=== PATIENT | male | born 1985 | race Caucasian/White ===

== ENCOUNTER 2021-10-27 11:10 | Emergency (ER) | payer OTHER, SELFPAY ==
--- NOTE | ~2021-10-27 | CT_ITS ---
EXAMINATION: CT ABDOMEN AND PELVIS WITHOUT CONTRAST CLINICAL INFORMATION: Lower abdominal pain with history of diverticulitis COMPARISON: CT abdomen pelvis 11/16/2019 TECHNIQUE: Multidetector volumetric imaging was performed from the superior aspect of the liver through the pubic symphysis. Sagittal and coronal reformatted images were obtained on the technologist's workstation. This CT examination was performed using dose optimization techniques as appropriate, variously including the following: *Automated exposure control *Adjustment of mA and/or kV according to patient size (this includes techniques or standardized protocols for targeted exams where dose is matched to indication/reason for exam; i.e. extremities or head) *Use of iterative reconstruction technique DLP: 447 mGy-cm FINDINGS: LUNG BASES: The visualized lung bases are unremarkable. LIVER, GALLBLADDER, AND BILIARY TREE: The liver is normal in size, shape, and attenuation. No focal hepatic lesion or biliary ductal dilatation is present. The gallbladder is unremarkable with no evidence of radiopaque gallstones, gallbladder wall thickening, or obvious pericholecystic inflammatory changes. PANCREAS: Unremarkable. SPLEEN: Unremarkable. ADRENAL GLANDS: Unremarkable. KIDNEYS AND URETERS: The kidneys are normal in size, shape, and attenuation. The left kidney is nonrotated and facing anterolaterally. No hydronephrosis, hydroureter, or calculi seen. No perinephric stranding. BLADDER: Unremarkable. GASTROINTESTINAL TRACT: The sigmoid colon, there is an area of thickening with marked diverticular changes. There are pericolonic inflammatory changes in this region as well suggestive of subtle acute diverticulitis. There is no extraluminal air and no pericolonic fluid collections. This is the same area where the patient had diverticulitis on 10/17/2019, but at that time, findings were more marked. The small and large bowel are otherwise unremarkable. The appendix is unremarkable. ABDOMINAL WALL: No significant hernia is appreciated. There is a tiny periumbilical hernia seen containing only fat. LYMPH NODES: No retroperitoneal lymphadenopathy. VASCULAR: Unremarkable. 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 OSSEOUS STRUCTURES: Unremarkable. CT/CT abdomen pelvis wo con IMPRESSION: Acute recurrent uncomplicated diverticulitis sigmoid colon . Other incidental findings as above. Fleischner guidelines were followed.
[2021-10-27 11:22] VITALS: BP 135/79; PULSE 98; RESP 18; TEMP 37.4; O2SAT 98; BMI 26.1
--- NOTE | 2021-10-27 12:01 | ED_ITS ---
HPI - Abdominal Pain General Chief Complaint: Abdominal Pain Stated Complaint: abd and low back pain Time Seen by Provider: 10/27/21 11:53 Source: patient Mode of arrival: ambulatory Limitations: no limitations History of Present Illness HPI narrative: 36 yo male with history of recurrent diverticulitis over the last 4 years who presents to the ER for evaluation of lower abdominal pain that started 2 nights ago. He reports it started in his left lower abdomen and has migrated to his right lower abdomen. He states it is all over his lower abdomen and constant. He feels most comfortable when he is lying down. He reports last night he started having shaking chills and subjective fever. No nausea or vomiting. No diarrhea. He had 1 bowel movement this morning that was normal consistency, unknown if there is any blood in his stool because he is color blind. He states he usually gets these flare-ups and can manage him at home by going on a liquid diet for couple of days. He has been having liquid diet at home but the pain has been worsening despite this. He has never been seen by GI and he has never had a colonoscopy before. MD elicited complaint: abdominal pain Pertinent past history: diverticulitis Onset (ago): hour(s) (2-3) Pain Consistency: constant Location: LLQ Severity: moderate Quality: stabbing Radiation: RLQ Migration to: RLQ Exacerbating factors: nothing Relieving factors: nothing Context: history of similar episodes Associated symptoms: fever and chills Related Data Previous Rx's Medication Instructions Recorded amoxicillin 875 mg-potassium 1 tab PO BID #20 tabs 10/27/21 clavulanate 125 mg tablet ibuprofen 600 mg tablet 600 mg PO Q8H PRN pain #10 tabs 10/27/21 oxycodone 5 mg tablet 5 mg PO Q8H PRN severe pain (scale 10/27/21 score 7-10) #6 tabs Allergies Allergy/AdvReac Type Severity Reaction Status Date / Time No Known Allergies Allergy Unverified 10/13/21 11:45 Review of Systems Review of Systems Constitutional: +Fever, + Chills ENT/Mouth: No sore throat, No Rhinorrhea, No Swallowing Difficulty Eyes: No Eye Pain, No Swelling, No Redness Cardiovascular: No Chest Pain, No SOB, No Orthopnea, No Edema Respiratory: No Cough, No Sputum, No Wheezing, No dyspnea Gastrointestinal: No Nausea, No Vomiting, No Diarrhea, + abdominal Pain, No Hematochezia, No Melena Genitourinary: No Dysuria, No Urinary Frequency, No Hematuria Musculoskeletal: No joint pain, No Myalgias Skin: No Skin Lesions, No rash Neuro: No Weakness, No Numbness, No Dizziness, No Headache Psych: No Anxiety/Panic, No Depression Heme/Lymph: No Bruising, No Lymphadenopathy Endocrine: No Polyuria, No Polydipsia PMFSH Social History Social History (System 10/13/21 @ 11:45 by Delmi Martinez) Advance Directives: No Advance Directives Information Provided: No Physical Exam ED Vital Signs: Vital Signs - 24 hr 10/27/21 11:22 10/27/21 12:14 10/27/21 14:13 Temperature 99.3 F 98.5 F Pulse Rate 98 87 84 Respiratory Rate 18 16 18 Blood Pressure 135/79 127/79 119/77 Pulse Oximetry 98 97 98 Oxygen Delivery Method Room Air Room Air Room Air BMI result Body Mass Index 26.1 Appearance: Alert. Oriented X3. No acute distress. Eyes: Pupils equal, round and reactive to light. ENT: Pharynx normal. Neck: Normal inspection. Neck supple. CVS: Normal heart rate and rhythm. Pulses normal. Respiratory: No respiratory distress. Breath sounds normal. Abdomen: Soft, mild lower abdominal tenderness, no rebound or guarding. normal +BS x4 Skin: Skin warm and dry. Normal skin color. Normal skin turgor. No rashes. Extremities: No lower extremity edema. Neuro: Oriented X 3. No motor deficit. No sensory deficit. Course Course Course Narrative: 36 yo male with history of recurrent diverticulitis presents with lower abdominal pain x 2-3 days without N/V/D or fever. Mild tenderness to his lower abdomen, no rebound or guarding. No fever on arrival. Will get labs and CT scan for further evaluation. Concern for recurrent diverticulitis. Reevaluation(s) Reevaluation #1: Labs are reassuring, no leukocytosis. His CT scan is showing acute uncomplicated sigmoid diverticulitis without any abscess formation. He is nontoxic appearing, tolerating p.o.. His pain is well controlled. At this time is stable for p.o. antibiotics, pain control and foll ow-up with GI for further evaluation. Stable for DC. MDM - Abdominal Pain Lab Data Result diagrams: 10/27/21 12:15 10/27/21 12:15 Labs: Lab Results 10/27/21 10/27/21 10/27/21 Range/Units 12:15 12:15 12:16 WBC 5.3 (4.8-10.8) X10*3/uL RBC 4.61 (4.60-5.80) X10*6/uL Hgb 13.5 L (14.0-18.0) g/dl Hct 41.4 L (42.0-52.0) % MCV 89.8 (80.0-98.0) fL MCH 29.3 (27.0-33.0) pg MCHC 32.6 (31.0-36.0) g/dl RDW 13.4 (11.0-16.0) % Plt Count 191 (160-400) X10*3/uL MPV 10.9 (9.4-12.4) fL Immature Gran % (Auto) 0.4 (0.0-0.4) % Neut % (Auto) 75.6 H (45-73) % Lymph % (Auto) 9.8 L (20-40) % [place] % (Auto) 13.2 H (2-11) % Eos % (Auto) 0.6 (0-4) % Baso % (Auto) 0.4 (0-2) % Lymph # (Auto) 0.5 L (1.2-4.9) X10*3/uL [place] # (Auto) 0.7 (0.1-1.2) X10*3/uL Eos # (Auto) 0.0 (0.0-0.4) X10*3/uL Baso # (Auto) 0.0 (0.0-0.2) X10*3/uL Abs Immat Gran (auto) 0.02 (0.00-0.03) X10*3/uL Absolute Neuts (auto) 4.0 (2.0-8.3) x10*3/uL Absolute Nucleated RBC 0.000 (0.0-0.012) X10*3/uL Nucleated RBC % (auto) 0.0 (0.0-0.2) /100WBC Sodium 138 (135-145) mmol/L Potassium 3.8 (3.3-5.1) mmol/L Chloride 101 (96-108) mmol/L Carbon Dioxide 28 (22-29) mmol/L Anion Gap 13 (12-20) BUN 12 (9-16) mg/dL Creatinine 0.98 (0.5-1.4) mg/dL Estim Creat Clear Calc 88.9 Estimated GFR > 60 Random Glucose 88 (60-115) mg/dL Calcium 9.6 (8.4-10.2) mg/dL Magnesium 1.9 (1.6-2.6) mg/dL Total Bilirubin 0.3 (0.0-1.0) mg/dL Direct Bilirubin < 0.2 (0.0-0.5) mg/dL AST 23 (5-37) U/L ALT 22 (0-40) U/L Alkaline Phosphatase 63 (39-117) U/L Total Protein 7.4 (6.5-8.0) g/dL Albumin 4.9 (3.5-5.0) g/dL Urine Color YELLOW Urine Appearance CLEAR Urine pH 6.5 (5.0-8.0) Ur Specific [place] <= 1.005 (1.005-1.025) Urine Protein NEG (NEG-TRACE) MG/DL Urine Glucose (UA) NEG (NEG) MG/DL Urine Ketones NEG (NEG) MG/DL Urine Blood NEG (NEG) Urine Nitrite NEG (NEG) Ur Leukocyte Esterase NEG (NEG) Critical Care Time Critical Care Time Critical Care Time: No Discharge Plan Discharge Clinical Impression: Diverticulitis Patient Disposition: Home, Self-Care Instructions: Diverticulitis (ED), Diverticulitis Diet (ED) Additional Instructions: Your CT scan showed acute uncomplicated diverticulitis of the sigmoid colon. Take the prescribed antibiotic as directed, do not miss any doses in complete the entire course. Continue to take Tylenol as needed for pain. Take the prescribed anti-inflammatories and narcotic pain medication as needed, as directed. Do not drive after taking the oxycodone, it can make you drowsy. Follow-up with GI for further evaluation and treatment. Name and number below. If you develop new or worsening symptoms call 911 or come back to the ER for further evaluation. Prescriptions: New amoxicillin-pot clavulanate 875-125 mg tablet 1 tab PO BID Qty: 20 0RF ibuprofen 600 mg tablet 600 mg PO Q8H PRN (Reason: pain) Qty: 10 0RF oxycodone 5 mg tablet 5 mg PO Q8H PRN (Reason: severe pain (scale score 7-10)) Qty: 6 0RF Rx Instructions: Partial Fill upon patient request. Referrals: Chele Green MD [Physician] - ( Recurrent diverticulitis) Stand Alone Forms: Work/School Release
[2021-10-27 12:14] VITALS: BP 127/79; PULSE 87; RESP 16; O2SAT 97
[2021-10-27 12:23] LABS: MANUAL DIFF FLAG NO
[2021-10-27 12:25] LABS: Appearance Urine CLEAR; Color Urine YELLOW; Glucose Urine UA NEG (NEG); Leukocyte Esterase Urine NEG (NEG); Nitrite Urine NEG (NEG); PH 6.5 (5.0-8.0); Specific Gravity - Urine <= 1.005 (1.005-1.025); Urine Blood NEG (NEG); Urine Ketones NEG (NEG); Urine Protein NEG (NEG-TRACE)
[2021-10-27 12:25] LABS: Basophils Percent Auto 0.4 % (0-2); Eosinophils Percent Auto 0.6 % (0-4); Hematocrit 41.4 % (42.0-52.0); Hemoglobin 13.5 g/dl (14.0-18.0); Imm Gran Abs Auto 0.02 X10*3/uL (0.00-0.03); Imm Gran Pct Auto 0.4 % (0.0-0.4); Lymphocytes Absolute Auto 0.5 X10*3/uL (1.2-4.9); Lymphocytes Percent Auto 9.8 % (20-40); Mean Corpuscular HGB Conc 32.6 g/dl (31.0-36.0); Mean Corpuscular Hemoglobin 29.3 pg (27.0-33.0); Mean Corpuscular Volume 89.8 fL (80.0-98.0); Mean Platelet Volume 10.9 fL (9.4-12.4); Monocytes Absolute Auto 0.7 X10*3/uL (0.1-1.2); Monocytes Percent Auto 13.2 % (2-11); Neutrophils Percent Auto 75.6 % (45-73); Platelet Count 191 X10*3/uL (160-400); Red Blood Count 4.61 X10*6/uL (4.60-5.80); Red Cell Distribution Width 13.4 % (11.0-16.0); White Blood Count 5.3 X10*3/uL (4.8-10.8)
[2021-10-27 12:57] LABS: Alanine Aminotransferase 22 U/L (0-40); Albumin Level 4.9 g/dL (3.5-5.0); Alkaline Phosphatase 63 U/L (39-117); Anion Gap 13 (12-20); Aspartate Amino Transferase 23 U/L (5-37); Bilirubin Direct < 0.2 mg/dL (0.0-0.5); Bilirubin Total 0.3 mg/dL (0.0-1.0); Blood Urea Nitrogen 12 mg/dL (9-16); Calcium 9.6 mg/dL (8.4-10.2); Carbon Dioxide 28 mmol/L (22-29); Chloride 101 mmol/L (96-108); Creatinine Clr Calc Pharmacy 88.9; Estimated Glomerular Filt Rate > 60; Glucose Random 88 mg/dL (60-115); Magnesium 1.9 mg/dL (1.6-2.6); Potassium 3.8 mmol/L (3.3-5.1); Sodium 138 mmol/L (135-145); Total Protein 7.4 g/dL (6.5-8.0)
[2021-10-27 14:13] VITALS: BP 119/77; PULSE 84; RESP 18; TEMP 36.9; O2SAT 98
== END 2021-10-27 15:05 | disposition home or self-care (01) ==
PROVIDERS: Physician Assistant; Emergency Provider Student in an Organized Health Care Education/Training Program; PCP Nurse Practitioner Family
DX: K57.32 Diverticulitis of large intestine without perforation or abscess without bleeding (principal)
CPT/HCPCS: 36415; 74176; 80048; 80076; 81003; 83735; 85025; 99283; 99284

== ENCOUNTER → 2021-12-05 10:53 | Outpatient (BNVA) | payer OTHER, SELFPAY | PROVIDERS: PCP Nurse Practitioner Family; Visit Provider Internal Medicine Gastroenterology | DX: K57.92 Diverticulitis of intestine, part unspecified, without perforation or abscess without bleeding (principal) | CPT/HCPCS: 99202 ==

== ENCOUNTER 2022-03-21 08:16 | Emergency (ER) | payer OTHER, SELFPAY ==
--- NOTE | ~2022-03-21 | CT_ITS ---
EXAMINATION: CT ABDOMEN AND PELVIS WITH CONTRAST CLINICAL INFORMATION: Abdominal pain COMPARISON: Previous CT of the abdomen and pelvis October 2021 TECHNIQUE: Multidetector volumetric images were obtained from the superior aspect of the liver through the pubic symphysis following administration 85 mL of Omnipaque 350 intravenous contrast. Sagittal and coronal reformatted images were obtained on the technologist's workstation. Oral contrast: Yes This CT examination was performed using dose optimization techniques as appropriate, variously including the following: *Automated exposure control *Adjustment of mA and/or kV according to patient size (this includes techniques or standardized protocols for targeted exams where dose is matched to indication/reason for exam; i.e. extremities or head) *Use of iterative reconstruction technique DLP: 280 mGy-cm FINDINGS: LUNG BASES: The visualized lung bases are unremarkable. LIVER, GALLBLADDER, AND BILIARY TREE: The liver is normal in size, shape, and attenuation. Small low-attenuation liver lesions difficult to characterize but may represent small cysts. No biliary duct dilatation. The gallbladder is unremarkable with no evidence of radiopaque gallstones, gallbladder wall thickening, or obvious pericholecystic inflammatory changes. PANCREAS: Unremarkable. SPLEEN: Unremarkable. ADRENAL GLANDS: Unremarkable. KIDNEYS AND URETERS: Abnormal rotation with anterior orientation of the left renal pelvis. Kidneys are otherwise unremarkable. BLADDER: Unremarkable. GASTROINTESTINAL TRACT: There is diverticulosis of the colon. There is wall thickening of the left and colon and stranding of the surrounding fat and small amount of fluid suggestive of acute diverticulitis. No evidence of perforation, obstruction or abscess. Small and large bowel is otherwise normal. The appendix is normal. ABDOMINAL WALL: Small bilateral inguinal hernias containing fat. LYMPH NODES: Normal. VASCULAR: Unremarkable. PELVIC VISCERA: Unremarkable. OSSEOUS STRUCTURES: Mild degenerative changes at the hip joints. CT/CT abdomen pelvis w IV con IMPRESSION: Diverticulitis of the left colon and sigmoid colon. Fleischner guidelines were followed.
[2022-03-21 08:18] VITALS: BP 141/94; PULSE 97; RESP 20; TEMP 36.6; O2SAT 99; BMI 25.7
--- NOTE | 2022-03-21 08:35 | ED_ITS ---
HPI - General Adult General Chief complaint: Abdominal Pain Stated complaint: Diverticulitis Time Seen by Provider: 03/21/22 08:34 Source: patient Mode of arrival: ambulatory Limitations: no limitations History of Present Illness HPI narrative: 37 yo M with a PMH of diverticulitis x 5 years presents to the ED with c/o LLQ abdominal pain. He states the pain began yesterday morning while at work. He denies any changes to his regular diet with the exception on new spices on his food. He states that he has had the same pain in the LLQ several times which has been attributed to his diverticulitis, however; the severity is increased compared to past episodes. He denies constipation, diarrhea, blood stools, nausea, and vomiting. He denies fever, chills, and weakness. Onset (ago): hour(s) Location: abdomen and left Radiation: non-radiation Severity: moderate Severity scale (1-10): 6 Quality: aching Pain Consistency: constant Relieving factors: none Exacerbating factors: eating Associated symptoms: denies other symptoms Treatments prior to arrival: none Related Data Previous Rx's Medication Instructions Recorded peg-electrolyte solution 420 gram 240 ml PO Q10M #4,000 mL 12/05/21 oral solution amoxicillin 875 mg-potassium 1 tab PO BID 7 days #14 tabs 03/21/22 clavulanate 125 mg tablet Allergies Allergy/AdvReac Type Severity Reaction Status Date / Time No Known Allergies Allergy Unverified 12/05/21 11:00 Review of Systems Eyes: Eyes: Reports no additional eye complaints ENT: Reports system reviewed and no additional complaints, except as documented Cardiovascular: Cardiovascular: Reports no additional cardiovascular complaints, Denies chest pain, Denies Epigastric Pain and Denies dyspnea Respiratory: Respiratory: Reports no additional respiratory complaints and Denies dyspnea Gastrointestinal: Gastrointestinal: Reports abdominal pain, Denies melena, Denies hematochezia, Denies change in stool character, Denies constipation, D enies diarrhea, Denies nausea and Denies vomiting Neurologic: Reports system reviewed and no additional complaints, except as documented PMFSH Past Medical History Attestation statement: The following information was validated with the patient. Source: old records reviewed Social History Social History Household Members: Significant Other Alcohol intake: never Patient Tobacco Use Status: Current everyday Tobacco user Tobacco use type: Cigarette Cigarette Packs Per Day: 0.5 Advance Directives: No Advance Directives Information Provided: No Physical Exam ED Vital Signs: Vital Signs - 24 hr 03/21/22 08:18 03/21/22 10:54 Temperature 97.9 F Pulse Rate 97 68 Respiratory Rate 20 16 Blood Pressure 141/94 H 128/77 Pulse Oximetry 99 99 Oxygen Delivery Method Room Air BMI result Body Mass Index 25.7 Const General: healthy appearing and no acute distress Nutritional Appearance: average body habitus Orientation/consciousness: patient oriented x3 Limitations: no limitations HENMT Head: Yes normal to inspection and Yes atraumatic Ears: hearing grossly normal bilaterally General nose exam: Normal external nose present Face and sinus: Yes normal facial exam Mouth: Normal oral and palatal mucosa present Eyes General: appearance normal, both eyes and all related structures Alignment and Position: alignment normal Periorbital: periorbital findings normal Eyelids: Yes eyelids normal Conjunctivae: conjunctivae normal Sclerae: sclerae normal Pupils: Equal, round and reactive pupils present EOM: EOMs intact bilaterally Neck Neck: Yes normal visual inspection and Yes full ROM Chest Chest palpation & inspection: normal inspection of the chest Resp Effort & Inspection: normal respiratory effort and able to speak in complete sentences Auscultation: clear to auscultation bilaterally Cardio Rate: regular rate Rhythm: regular rhythm GI Inspection: Yes normal to inspection Palpation (GI): Soft to palpation, not firm, Tenderness to palpation present (GI) in the LLQ, Guarding due to palpation present (GI) and not rigid Auscultation: normal bowel sounds Skin General skin exam: no rashes or lesions noted Neuro General: patient oriented x3 Cranial nerves: Yes Equal, round and reactive pupils present Cognition (Neuro): normal cognition Gait exam (Neuro): Normal gait present Motor exam (neuro): 5/5 motor strength present throughout Sensory Exam: Normal double simultaneous stimulation for sensation Extrem General: Yes normal to inspection, Yes full ROM and Yes capillary refill normal Psych Appearance: grossly normal Mental Status: mental status grossly normal Speech and movement: Normal speech and movement present Affect: normal affect Attitude: cooperative Thought process: Normal thought process present Thought content: Normal thought content present Insight: Good insight present (Psych) Judgement: Good judgement present (Psych) Medications Administered Discontinued Medications Generic Name Dose Route Start Last Admin Trade Name Freq PRN Reason Stop Dose Admin Amoxicillin/Clavulanate Potassium 875 mg 03/21/22 10:35 03/21/22 10:53 Amoxicillin/Potassium Clav 875 Mg Tablet PO 03/21/22 10:36 875 mg ONCE ONE Administration Iohexol 100 ml 03/21/22 09:38 03/21/22 09:39 Iohexol 350 Mg/Ml 100 Ml Infus..Btl IV 03/21/22 09:39 85 ml ONCE ONE Administration Ketorolac Tromethamine 30 mg 03/21/22 08:52 03/21/22 08:59 Ketorolac Tromethamine 30 Mg/Ml Vial IVPUSH 03/21/22 08:53 30 mg ONCE ONE Administration Medical Decision Making MDM Narrative Medical decision making narrative: 37 yo M with a PMH of diverticulitis x 5 years presents to the ED with c/o LLQ abdominal pain that began yesterday morning while at work. WBC and CRP elevated indicating inflammatory process remaining lab work unremarkable. UA negative. CT scan abdomen consistent with diverticulitis of the left colon and sigmoid colon. Low suspicion of colitis, appendicitis, or IBS. 875 mg Augmentin given prior to discharge and pt sent home with Augmentin prescription. Educated to return to the ED with worsening symptoms, severe abdominal pain, bloody stools, or fever. Recommended to follow up with PCP for further management. Lab Data Result diagrams: 03/21/22 08:47 03/21/22 08:47 Labs: Lab Results 03/21/22 03/21/22 03/21/22 Range/Units 08:47 08:47 10:15 WBC 11.4 H (4.8-10.8) X10*3/uL RBC 5.02 (4.60-5.80) X10*6/uL Hgb 14.5 (14.0-18.0) g/dl Hct 44.3 (42.0-52.0) % MCV 88.2 (80.0-98.0) fL MCH 28.9 (27.0-33.0) pg MCHC 32.7 (31.0-36.0) g/dl RDW 13.6 (11.0-16.0) % Plt Count 220 (160-400) X10*3/uL MPV 10.6 (9.4-12.4) fL Immature Gran % (Auto) 0.3 (0.0-0.4) % Neut % (Auto) 78.6 H (45-73) % Lymph % (Auto) 13.2 L (20-40) % [place] % (Auto) 6.8 (2-11) % Eos % (Auto) 0.7 (0-4) % Baso % (Auto) 0.4 (0-2) % Lymph # (Auto) 1.5 (1.2-4.9) X10*3/uL [place] # (Auto) 0.8 (0.1-1.2) X10*3/uL Eos # (Auto) 0.1 (0.0-0.4) X10*3/uL Baso # (Auto) 0.1 (0.0-0.2) X10*3/uL Abs Immat Gran (auto) 0.04 H (0.00-0.03) X10*3/uL Absolute Neuts (auto) 9.0 H (2.0-8.3) x10*3/uL Absolute Nucleated RBC 0.000 (0.0-0.012) X10*3/uL Nucleated RBC % (auto) 0.0 (0.0-0.2) /100WBC Sodium 138 (135-145) mmol/L Potassium 3.9 (3.3-5.1) mmol/L Chloride 99 (96-108) mmol/L Carbon Dioxide 28 (22-29) mmol/L Anion Gap 15 (12-20) BUN 10 (9-16) mg/dL Creatinine 1.03 (0.5-1.4) mg/dL Estim Creat Clear Calc 83.7 Estimated GFR > 60 Random Glucose 102 (60-115) mg/dL Calcium 9.9 (8.4-10.2) mg/dL C-Reactive Protein 20.26 H (< or = 0.50) mg/dL Urine Color Yellow Urine Appearance Clear Urine pH 6.5 (5.0-9.0) Ur Specific [place] >= 1.030 H (1.005-1.025) Urine Protein Trace (Neg-Trace) mg/dL Urine Glucose (UA) Negative (Negative) mg/dL Urine Ketones Negative (Negative) mg/dL Urine Blood Negative (Negative) Urine Nitrite Negative (Negative) Ur Leukocyte Esterase Negative (Negative) Urine RBC 0-2 (0-2) /HPF Urine WBC 0-5 (0-5) /HPF Ur Squamous Epith Cells 0-2 (0-2) /HPF Urine Bacteria None Seen (None Seen) Hyaline Casts 0-2 (0-2) /LPF Imaging Data CT scan - abdomen: Radiologist's impression: CT/CT abdomen pelvis w IV con IMPRESSION: Diverticulitis of the left colon and sigmoid colon. Discharge Plan Discharge Clinical Impression: Diverticulitis Patient Disposition: Home, Self-Care Instructions: Diverticulitis (ED), Diverticulitis Diet (ED) Prescriptions: New amoxicillin-pot clavulanate 875-125 mg tablet 1 tab PO BID 7 Days Qty: 14 0RF No Action peg-electrolyte soln 420 gram recon soln 240 ml PO Q10M Qty: 4000 0RF Rx Instructions: until fecal effluent is clear; do not exceed a total volume of 2,000 mL Referrals: Tima Bunch, [facility] [Primary Care Provider] - Interventions: ED Discharge Assessment Last Done: 03/21/22 10:59 Discharge Date/Time: 03/21/22 10:59 Print Language: Georgian
[2022-03-21 08:52] LABS: MANUAL DIFF FLAG NO
[2022-03-21 08:55] LABS: Basophils Absolute Auto 0.1 X10*3/uL (0.0-0.2); Basophils Percent Auto 0.4 % (0-2); Eosinophils Absolute Auto 0.1 X10*3/uL (0.0-0.4); Eosinophils Percent Auto 0.7 % (0-4); Hematocrit 44.3 % (42.0-52.0); Hemoglobin 14.5 g/dl (14.0-18.0); Imm Gran Abs Auto 0.04 X10*3/uL (0.00-0.03); Imm Gran Pct Auto 0.3 % (0.0-0.4); Lymphocytes Absolute Auto 1.5 X10*3/uL (1.2-4.9); Lymphocytes Percent Auto 13.2 % (20-40); Mean Corpuscular HGB Conc 32.7 g/dl (31.0-36.0); Mean Corpuscular Hemoglobin 28.9 pg (27.0-33.0); Mean Corpuscular Volume 88.2 fL (80.0-98.0); Mean Platelet Volume 10.6 fL (9.4-12.4); Monocytes Absolute Auto 0.8 X10*3/uL (0.1-1.2); Monocytes Percent Auto 6.8 % (2-11); Neutrophils Percent Auto 78.6 % (45-73); Platelet Count 220 X10*3/uL (160-400); Red Blood Count 5.02 X10*6/uL (4.60-5.80); Red Cell Distribution Width 13.6 % (11.0-16.0); White Blood Count 11.4 X10*3/uL (4.8-10.8)
[2022-03-21] MEDS: Ketorolac Tromethamine 30 MG/ML VIAL IVPUSH (08:59)
[2022-03-21 09:09] LABS: Anion Gap 15 (12-20); Blood Urea Nitrogen 10 mg/dL (9-16); Calcium 9.9 mg/dL (8.4-10.2); Carbon Dioxide 28 mmol/L (22-29); Chloride 99 mmol/L (96-108); Creatinine Clr Calc Pharmacy 83.7; Estimated Glomerular Filt Rate > 60; Glucose Random 102 mg/dL (60-115); Potassium 3.9 mmol/L (3.3-5.1); Sodium 138 mmol/L (135-145)
[2022-03-21] MEDS: iohexoL 350 MG/ML 100 ML INFUS..BTL IV (09:39)
[2022-03-21 10:15] LABS: C Reactive Protein 20.26 mg/dL (< or = 0.50)
[2022-03-21 10:21] LABS: Appearance Urine Clear; Color Urine Yellow; Glucose Urine UA Negative (Negative); Leukocyte Esterase Urine Negative (Negative); Nitrite Urine Negative (Negative); PH 6.5 (5.0-9.0); Specific Gravity - Urine >= 1.030 (1.005-1.025); Urine Blood Negative (Negative); Urine Ketones Negative (Negative); Urine Protein Trace mg/dL (Neg-Trace)
[2022-03-21 10:38] LABS: Bacteria Urine None Seen (None Seen); Hyaline Casts Urine 0-2 /LPF (0-2); RBC Urine 0-2 /HPF (0-2); Squamous Epithelial Cell Urine 0-2 /HPF (0-2); WBC Urine 0-5 /HPF (0-5)
[2022-03-21] MEDS: Amoxicillin/Potassium Clav 875 MG TABLET PO (10:53)
[2022-03-21 10:54] VITALS: BP 128/77; PULSE 68; RESP 16; O2SAT 99
== END 2022-03-21 10:59 | disposition home or self-care (01) ==
PROVIDERS: Nurse Practitioner Family; Emergency Provider Emergency Medicine Emergency Medical Services; PCP Nurse Practitioner Family
DX: K57.32 Diverticulitis of large intestine without perforation or abscess without bleeding (principal); F17.210 Nicotine dependence, cigarettes, uncomplicated; Z71.6 Tobacco abuse counseling; Z79.899 Other long term (current) drug therapy
CPT/HCPCS: 36415; 74177; 80048; 81001; 85025; 86140; 96374; 99283; 99284; J1885; Q9967

== ENCOUNTER 2022-04-06 09:41 | Day surgery (SDC) | payer OTHER, SELFPAY ==
[2022-04-03 15:24] VITALS: BMI 26.1
--- NOTE | 2022-04-05 12:04 | P.CONAN_ITS ---
Documented by User: Terra Ricardo NP 04/05/22 12:05 HPI - Anesthesia Eval Consult details Narrative: 37yo M for Colonoscopy [facility] Past Medical History Medical History Abdominal pain Color blindness Constipation Diarrhea Heartburn Smoker Social History Social History Household Members: Significant Other Alcohol intake: never Patient Tobacco Use Status: Current everyday Tobacco user Tobacco use type: Cigarette Cigarette Packs Per Day: 0.5 Cigarettes Per Day: 10 Meds Allergies Allergy/AdvReac Type Severity Reaction Status Date / Time No Known Allergies Allergy Unverified 12/05/21 11:00 Exam Exam Date and Time: April 05, 2022 1204 Height,Weight and Vital Signs: Height 5 ft 5 in Weight 71.214 kg Pertinent Lab Results Pertinent Lab Results: Laboratory Tests 03/21/22 03/21/22 08:47 08:47 WBC 11.4 H Hgb 14.5 Hct 44.3 Plt Count 220 Sodium 138 Potassium 3.9 Chloride 99 Carbon Dioxide 28 BUN 10 Creatinine 1.03 Assessment and Plan Assessment Anesthesia Assessment: Chart Reviewed Documented by User: Long Ceballos MD 04/06/22 17:37 [facility] Past Medical History Medical History Abdominal pain Color blindness Constipation Diarrhea Heartburn Smoker Family History Family history of problems with anesthesia: No Surgical History History of Problems with Anesthesia: No Social History Social History Household Members: Significant Other Alcohol intake: never Patient Tobacco Use Status: Current everyday Tobacco user Tobacco use type: Cigarette Cigarette Packs Per Day: 0.5 Cigarettes Per Day: 10 Meds Allergies Allergy/AdvReac Type Severity Reaction Status Date / Time No Known Allergies Allergy Unverified 12/05/21 11:00 Exam Airway Mallampati Class: III TM Dist: >3cm Denture: Upper Loose/Missing/Broken Teeth: Yes Heart: S1,S2 Lungs: b/l breath sounds Assessment and Plan Assessment Anesthesia Assessment: Anesthesia Plan Discussed Final Anesthetic Review Family History of Problems with Anesthesia: No History of Problems with Anesthesia: No NPO: Yes ASA Class: II Final Preanesthetic Review: Meds/Allgs Chart Reviewed, Consent Obtained/Reviewed and Anes Risks/Benef Reviewed Patient Risk: Intermediate Procedure Risk: Intermediate Anesthetic Plan Anesthetic Plan: MAC: Disposition: Standard PACU
[2022-04-06 10:03] VITALS: BP 136/69; PULSE 57; RESP 16; TEMP 36.6; O2SAT 99
[2022-04-06] MEDS: Lactated Ringers 1,000 ML 100 ML IVCONT (10:14)
--- NOTE | 2022-04-06 10:48 | MHC.SHP ---
Pre-Procedural Eval Section A Date of Service: 04/06/22 Section B Chief Complaint: recurrent diverticulitis Relevant Family History (Specify if Yes): No Relevant Social History: Tobacco Use Present Medications: see Short Stay Collaborative assessment Medical History: Significant History (Abdominal pain Color blindness Constipation Diarrhea Heartburn Smoker) History of Previous Operations: No relevant previous surgery Allergies: Allergies Allergy/AdvReac Type Severity Reaction Status Date / Time No Known Allergies Allergy Unverified 12/05/21 11:00 Review of Systems Sugical H&P ROS: Negative: Constitution, Cardiovascular, Respiratory, Neurological, Psychiatric, Hem-Onc, Allergic/Immunologic, Gastrointestinal, Genitourinary, Musculoskeletal, Integumentary, Endocrine and Eyes/Ears/Nose/Throat Exam Surgical H&P Exam: Normal: HEENT, Normal: Heart, Normal: Lungs, Normal: Extremities, Normal: Abdomen, Normal: Skin and Normal: Neurological Plan Diagnosis/Plan: Unchanged I have reviewed the history and physical and performed a pertinent physical examination on my patient. No changes have occurred unless specified.
--- NOTE | 2022-04-06 10:55 | P.OP_ITS ---
Operative Note Operative Note Date of Service: 04/06/22 Narrative: Operative Information Procedure Description: Colonoscopy Indication: recurrent diverticulitis Anesthesia: MAC COLONOSCOPY Instrument: Olympus variable stiffness pediatric scope 190L Colonoscopy Monitoring: Vital signs and clinical assessment, continuous EKG monitoring, Pulse oximetry, Carbon Dioxide monitoring and blood pressure monitoring were done throughout the procedure. Colon withdrawal time was 7 minutes. Procedure: The patient was placed in the left lateral decubitis position and pre-procedure medications were administered. After a digital rectal examination of the ano-rectum, the video colonoscope was inserted into the rectum and advanced through the colon to the cecum/TI. The colonoscope was slowly withdrawn in a retrograde panoramic fashion and the colon mucosa was carefully examined including a retroflexed view of the rectum. Findings and interventions are described below. Procedure Difficulty: easy Findings: Terminal Ileum-normal Cecum:normal Ascending Colon: normal Transverse Colon - 10 mm sessile polyp removed with cold snare Descending Colon:normal Sigmoid Colon: moderate diverticulosis with patchy erythema and small tics Rectum: Retroflexion with small internal hemorrhoids, grade I Anorectum - normal Colon preparation: Mcewen Bowel Preparation Scale Right colon; 2 Transverse colon: 3 Left colon; 2 (0 = Unprepared colon segment with mucosa not seen due to solid stool that cannot be cleared. 1 = Portion of mucosa of the colon segment seen, but other areas of the colon segment not well seen due to staining, residual stool and/or opaque liquid. 2 = Minor amount of residual staining, small fragments of stool and/or opaque liquid, but mucosa of colon segment seen well. 3 = Entire mucosa of colon segment seen well with no residual staining, small fragments of stool or opaque liquid) Impression and Post Procedure Diagnosis: diverticulosis with mild erythema internal hemorrhoids polyp Plan: High fiber diet leaflet Avoid straining at stool, epsom salts and sitz bath, anusol supps or cream Repeat Colonoscopy in 5 years if adenomatous polyp, 10 yrs if benign or earlier if clinically indicated Recommend smoking cessation and avoid nsaids, may help reduce attacks of diverticulitis, can try NRT --if persists then surgical referral Above findings were reviewed with the patient and relevant handouts were provided if indicated.
[2022-04-06 11:31] VITALS: BP 93/46; PULSE 86; RESP 17; TEMP 36.3; O2SAT 98
[2022-04-06 11:46] VITALS: BP 89/57; PULSE 69; RESP 16; TEMP 36.1; O2SAT 99
[2022-04-06 12:04] VITALS: BP 129/76; PULSE 66; RESP 16; TEMP 36.1; O2SAT 99
== END 2022-04-06 12:56 | disposition home or self-care (01) ==
PROVIDERS: PCP Nurse Practitioner Family; Visit Provider Internal Medicine Gastroenterology
PROC: 0DJD8ZZ Inspection of Lower Intestinal Tract, Via Natural or Artificial Opening Endoscopic (ICD-10-PCS; CPT 45378; principal; 2022-04-06 11:30)
DX: K57.92 Diverticulitis of intestine, part unspecified, without perforation or abscess without bleeding (principal); D12.3 Benign neoplasm of transverse colon; K57.30 Diverticulosis of large intestine without perforation or abscess without bleeding; K64.0 First degree hemorrhoids; H53.50 Unspecified color vision deficiencies; F17.210 Nicotine dependence, cigarettes, uncomplicated
CPT/HCPCS: 45385; 88305; J2250

== ENCOUNTER → 2022-08-04 11:42 | Outpatient (BNVA) | payer OTHER, SELFPAY | PROVIDERS: PCP Nurse Practitioner Family; Visit Provider Internal Medicine Gastroenterology | DX: K57.92 Diverticulitis of intestine, part unspecified, without perforation or abscess without bleeding (principal); D12.6 Benign neoplasm of colon, unspecified; F17.210 Nicotine dependence, cigarettes, uncomplicated | CPT/HCPCS: 99212 ==

== ENCOUNTER 2024-10-20 13:38 | Outpatient (AMB) | payer OTHER, SELFPAY ==
--- NOTE | 2024-10-20 13:39 | A.OFFVIS_ITS ---
Vital Signs 10/20/24 13:43 Height 5 ft 4.5 in Weight 167 lb 8.821 oz BMI 28.3 BP 153/85 H Blood Pressure Location Lt brachial Position Sitting Pulse 72 Intake Visit Reasons: Med Refill Request Intake Note: Zeke presents in the office as a follow up for med refill. CC: States that he is not having any concerns today. GERD depending on what he eats and what time of day he eats. 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 Allergies No Known Allergies Allergy (Unverified 10/20/24 13:40) HPI HPI Med Refill Request: Details: 39 yr old m here for f/u RECAP: He has had few attacks of diverticulitis over the years he felt bound up on the left side and went to ED< got ABX which usu help taking a probiotic daily, needs to take more fluids CT 10/2021- sigmoid diverticulitis similar to what was seen on CT in 2019 colonoscopy 04/27 diverticulosis with mild erythema internal hemorrhoids polyp--tubular adenoma INTERIM: He is doing well he has no complaints half a pack a day, still smoking he tried NRT< didnt work he takes levsin prn, works well EXAM: GENERAL: The patient is well developed and nontoxic. VITAL SIGNS:see workflow HEENT: Nonicteric sclerae, PERRLA, EOMI. Oropharynx clear. Moist mucous membranes. Conjunctivae appear well perfused. No thyroid mass. CHEST: Chest wall is nontender. HEART: Regular rate and rhythm without murmurs. LUNGS: Clear to auscultation bilaterally. ABDOMEN: Soft, positive bowel sounds, nontender, no organomegaly.no flank tenderness SKIN: No rash, no excessive bruising, petechiae, or purpura. NEUROLOGIC: Cranial nerves II-XII intact without motor/sensory deficit. Psych: normal affect A/P: 1/ Recurrent diverticulitis, doing better, trying high fiber diet but maybe stil l suboptimal --doing well with levsin, 2/ tubular adenoma Plan: 1/ discussed high fiber diet again -he thought he couldn,t take seeded veg or fruit, explained this has been dismissed a while back--gave leaflet again 2/ cont levsin prn PFS Medical History Smoker Heartburn Color blindness Diarrhea Constipation Abdominal pain Surgical History Hx of colonoscopy Social History Household Members: Significant Other Alcohol intake: never Patient Tobacco Use Status: Current everyday Tobacco user Tobacco use type: Cigarette Cigarette Packs Per Day: 0.5 Cigarettes Per Day: 10 Physical Exam Vital Signs: Last Vital Signs Pulse 72 10/20/24 13:43 BP 153/85 H 10/20/24 13:43 BMI result Body Mass Index 28.3 Assessment & Plan Assessment & Plan (1) Diverticula of intestine: Code(s): K57.30 - Diverticulosis of large intestine without perforation or abscess without bleeding Category: Medical Plan: as above Coding Level of Care Code Est Pt Level 3 (32467) Diagnoses Diverticula of intestine K57.30
[2024-10-20 13:43] VITALS: BP 153/85; PULSE 72; BMI 28.3
--- OUTSIDE RECORDS SUMMARY | 2024-10-20 15:12 | XMS_ITS | Clinical Summary ---
Author Organization [facility] Address [address] [place] [address] [address] [place] [address] Care Team Providers Care Fancy Sewer Name Role Phone Unavailable Primary Care Provider Unavailabl e Allergies No known active allergies Medications No known medications Active Problems No known active problems Encounters Date Type Department Care Team Description 10/17/2024 9:00 AM EDT Office Visit [facility] [address] [place] [address] Calli Choi 10/10/2024 11:30 AM EDT Office Visit [facility] [address] [place] [address] Calli Choi from Last 3 Months Social History Tobacco Use Types Packs/Day Years Used Date Smoking Tobacco: Never Assessed Sex and Gender Information Value Date Recorded Sex Assigned at Male 03/06/2022 10:18 AM EDT Legal Sex Male 10:18 AM EDT Gender Identity Male 10/10/2024 10:39 AM EDT Sexual Orientation Choose not to disclose 2024 10:38 AM EDT Last Filed Vital Signs Vital Sign Reading Time Taken Comments Blood Pressure 124/82 10/17/2024 10:05 AM EDT Pulse - - Temperature - - Respiratory Rate - - Oxygen Saturation - - Inhaled Oxygen Concentration - - Weight - - Height - - Body Mass Index - - Plan of Treatment Upcoming Encounters Date Type Department Care Team (Late st Contact Info) Description 10/28/2024 1:00 PM EDT Office Visit [facility] [address] [place] [address] Ros Kent Health Maintenance Due Date Last Done Comments Depression Screening 1983 HIV Screening 1983 Lipid Panel 1983 SDOH Screening 1983 Disability Screening 1983 Alcohol/Substance Use Screening 1995 Tobacco Screening 1995 Family Planning (PISQ) 1998 Hepatitis C Screening 2001 DTaP/Tdap/Td Vaccines (1 - Tdap) 2002 Hepatitis B Vaccines (1 of 3 - 19+ 3-dose series) 2002 Dental Oral Exam 11/26/2014 05/28/2014 Dental Prophylaxis 03/09/2016 09/06/2015, 03/05/2015, 09/01/2014 Dental X-Ray: Full Mouth 04/25/2017 014, 02/03/2011 COVID-19 Vaccine (1 - 2023-2 5 season) 2024 Influenza Vaccine (Season Ended) 2025 Dental X-Ray: Bitewings 10/11/2025 10/11/19 25, 04/24/2014 Zoster Vaccines (1 of 2) 2033 RSV Patients and Patients Aged 60 years or older (1 - 1-dose 75+ series) 2058 HIB Vaccines Aged Out No longer eligi ble based on patient's age to complete this topic HPV Vaccines Aged Out No longer eligi ble based on patient's age to complete this topic Hepatitis A Vaccines Aged Out No long er eligible based on patient's age to complete this topic IPV Vaccines Aged Out No longer eligi ble based on patient's age to complete this topic Meningococcal B Vaccine Aged Out No l onger eligible based on patient's age to complete this topic Meningococcal Vaccine Aged Out No mercedes reynaldo eligible based on patient's age to complete this topic Pneumococcal Vaccine: Pediatrics (0 to 5 Years) and At-Risk Patients (6 to 49) Years Aged Out No longer eligible b ased on patient's age to complete this topic RSV under 20 months Aged Out No longe r eligible based on patient's age to complete this topic Rotavirus Vaccines Aged Out No longer eligible based on patient's age to complete this topic Procedures Procedure Name Priority Date/Time Associated Diagnosis Comments 29 RESIN-BASED COMPOSITE - 3 SURF, POSTERIOR Routine 10/17/2024 9:00 AM EDT BITEWING - SINGLE RADIOGRAPHIC IMAGE Routine 10/10/2024 11:30 AM EDT 29 INTRAORAL - PERIAPICAL FIRST RADIOGRAPHIC IMAGE Routine 10/10/2024 11:30 AM EDT 29 LIMITED ORAL EVALUATION - PROBLEM FOCUSED Routine 10/10/2024 11:30 AM EDT PROPHYLAXIS - ADULT Routine 09/06/2015 1 2:00 AM EDT COMPREHENSIVE ORAL EVALUATION - NEW OR ESTABLISHED PATIENT Routine 05/28/2014 12:00 AM EST INTRAORAL - COMPLETE SERIES OF RADIOGRAPHIC IMAGES Routine 04/24/2014 12:00 AM EST from Last 3 Months or Most Recently Relevant to Health Maintenance Insurance [facility]
== END 2024-10-20 14:12 | disposition home or self-care (01) ==
LOC: HO.HGI 13:39
PROVIDERS: PCP Nurse Practitioner Family; Visit Provider Internal Medicine Gastroenterology
DX: K57.30 Diverticulosis of large intestine without perforation or abscess without bleeding (principal)
CPT/HCPCS: 99213

== ENCOUNTER → 2024-10-20 13:38 | Outpatient (BNVA) | payer OTHER, SELFPAY | PROVIDERS: PCP Nurse Practitioner Family; Visit Provider Internal Medicine Gastroenterology | DX: K57.30 Diverticulosis of large intestine without perforation or abscess without bleeding (principal) | CPT/HCPCS: 99212 ==